=== PATIENT | male | born 1980 | race African-American/Black ===

== ENCOUNTER 2021-04-17 12:09 | Emergency (ER) | payer OTHER ==
[~2021-04-17] VITALS: Ht 185.4 cm; Wt 108.9 kg
[2021-04-17] MEDS ORDERED: LETAIRIS10 MG PO (12:39)
[2021-04-17] MEDS ORDERED: ORPHENADRINE C100 MG PO (16:25)
[2021-04-17] MEDS ORDERED: IBU600 MG PO (16:25)
== END 2021-04-17 17:33 | disposition home or self-care (01) ==
LOC: ER 12:09
DX: B34.9 Viral infection, unspecified (principal); R60.0 Localized edema; M79.18 Myalgia, other site; M25.551 Pain in right hip; R07.89 Other chest pain

== ENCOUNTER 2021-07-01 07:34 | Outpatient (CLI) | payer OTHER ==
[~2021-07-01 07:34] MED LIST: IBU600 MG PO; LETAIRIS10 MG PO; ORPHENADRINE C100 MG PO
== END 2021-07-01 07:35 | disposition home or self-care (01) ==
LOC: NUCLEAR 07:34
DX: R60.0 Localized edema (principal); B20 Human immunodeficiency virus [HIV] disease

== ENCOUNTER 2021-08-21 07:49 | Outpatient (CLI) | payer OTHER | END 2021-08-21 08:06 | disposition home or self-care (01) | LOC: SONOGRAMA 07:49 | DX: N32.9 Bladder disorder, unspecified (principal); B20 Human immunodeficiency virus [HIV] disease ==

== ENCOUNTER 2021-08-28 12:05 | Emergency (ER) | payer OTHER ==
[~2021-08-28] VITALS: Ht 185.4 cm; Wt 100.7 kg
[2021-08-28] MEDS ORDERED: TOPROL XL25 M1 (13:08)
== END 2021-08-28 17:19 | disposition home or self-care (01) ==
LOC: ER 12:05
DX: M76.891 Other specified enthesopathies of right lower limb, excluding foot (principal); Z85.72 Personal history of non-Hodgkin lymphomas

== ENCOUNTER 2021-09-06 14:32 | Emergency (ER) | payer OTHER ==
[~2021-09-06] VITALS: Ht 185.4 cm; Wt 100.2 kg
[~2021-09-06 14:32] MED LIST changes: +TOPROL XL25 M1
[2021-09-06] MEDS ORDERED: ORPHENADRINE C100 MG PO (17:14)
== END 2021-09-06 17:33 | disposition home or self-care (01) ==
LOC: ER 14:32
DX: M62.830 Muscle spasm of back (principal); M25.551 Pain in right hip

== ENCOUNTER 2021-09-09 10:12 | Outpatient (CLI) | payer OTHER | END 2021-09-09 10:32 | disposition home or self-care (01) | LOC: LAB 10:12 | PROVIDERS: ATTEND Orthopaedic Surgery | DX: I10 Essential (primary) hypertension (principal); D64.9 Anemia, unspecified; I49.9 Cardiac arrhythmia, unspecified; D68.8 Other specified coagulation defects; N39.0 Urinary tract infection, site not specified; A49.02 Methicillin resistant Staphylococcus aureus infection, unspecified site; E11.65 Type 2 diabetes mellitus with hyperglycemia; Z76.89 Persons encountering health services in other specified circumstances ==

== ENCOUNTER 2021-09-22 04:49 | Emergency (ER) | payer OTHER ==
[~2021-09-22] VITALS: Ht 182.9 cm; Wt 101.6 kg
[2021-09-22] MEDS ORDERED: DILTIAZEM ER120 MG (05:29)
== END 2021-09-22 10:58 | disposition home or self-care (01) ==
LOC: ER 04:49
DX: R07.89 Other chest pain (principal); N39.0 Urinary tract infection, site not specified; R50.9 Fever, unspecified; M54.2 Cervicalgia; Z20.822 Contact with and (suspected) exposure to COVID-19

== ENCOUNTER 2021-10-06 10:04 | Outpatient (CLI) | payer OTHER ==
[~2021-10-06 10:04] MED LIST changes: +DILTIAZEM ER120 MG
== END 2021-10-06 10:20 | disposition home or self-care (01) ==
LOC: LAB 10:04
PROVIDERS: ATTEND Orthopaedic Surgery
DX: D70.8 Other neutropenia (principal)

== ENCOUNTER 2021-11-09 12:21 | Outpatient (CLI) | payer OTHER | END 2021-11-09 13:37 | disposition home or self-care (01) | LOC: LAB 12:21 | PROVIDERS: ATTEND Orthopaedic Surgery | DX: D64.9 Anemia, unspecified (principal); E88.9 Metabolic disorder, unspecified; D68.8 Other specified coagulation defects; N39.0 Urinary tract infection, site not specified; A49.02 Methicillin resistant Staphylococcus aureus infection, unspecified site; E11.9 Type 2 diabetes mellitus without complications; I10 Essential (primary) hypertension; I49.9 Cardiac arrhythmia, unspecified; Z76.89 Persons encountering health services in other specified circumstances ==

== ENCOUNTER → 2021-11-17 11:35 | Outpatient (CLI) | payer OTHER | END | disposition home or self-care (01) | LOC: LAB 11:35 | PROVIDERS: ATTEND Orthopaedic Surgery | DX: D68.9 Coagulation defect, unspecified (principal) ==